=== PATIENT | male | born 1970 | race African-American/Black ===

== ENCOUNTER 2018-11-05 18:23 | Inpatient (IN) | payer OTHER ==
[~2018-11-05] VITALS: Ht 165.1 cm; Wt 85.3 kg
[2018-11-05 18:25] VITALS: BP 174/130
[2018-11-05 19:47] LABS: EOSINOPHILS 2.8 % (0.0-3.0); HEMATOCRIT 48.1 % (42.0-52.0); HEMOGLOBIN 16.5 gm/dL (14.0-18.0); LYMPHOCYTES 26.5 % (24.0-44.0); MCH 30.4 pg (26.0-34.0); MCHC 34.4 g/dL (28.0-37.0); MCV 88.4 fL (80.0-100.0); MONOCYTES 5.2 % (1.0-8.0); PLATELET COUNT 237 thou/uL (150-400); POLYS 64.5 % (36.0-66.0); RBC 5.44 mil/uL (4.50-6.00); RDW 13.4 % (10.5-14.5); WBC 9.3 thou/uL (4.0-11.0)
[2018-11-05 19:55] LABS: ANION GAP 8 mmol/L (7-16); BUN 12 mg/dL (7-18); CALCIUM 9.2 mg/dL (8.5-10.1); CHLORIDE 105 mmol/L (98-107); CO2 30 mmol/L (21-32); CREATININE 1.1 mg/dL (0.7-1.3); GLUCOSE 114 mg/dL (74-106); POTASSIUM 3.9 mmol/L (3.5-5.1); SODIUM 143 mmol/L (136-145)
[2018-11-05 20:03] LABS: ALBUMIN 3.7 g/dL (3.4-5.0); LIPASE 84 U/L (73-393); SGOT 25 U/L (15-37); SGPT 43 U/L (30-65); TOTAL BILIRUBIN 0.6 mg/dL (<0.1-1.0); TOTAL PROTEIN 7.5 g/dL (6.4-8.2); TROPONIN-I <0.06 ng/mL (<0.06)
[2018-11-05 21:04] VITALS: BP 155/106
[2018-11-05 21:57] LABS: CHOLESTEROL 260 mg/dL (<200); HDL CHOLESTEROL 32 mg/dL (>40); LDL CHOLESTEROL 182 mg/dL (<100); TC:HDL 8.1 Ratio (Not establshd); TRIGLYCERIDE 230 mg/dL (<150); VLDL 46 mg/dL (<40)
--- NOTE | 2018-11-05 22:34 | NUR ---
ADMISSION NOTE: STATED THAT HE HAS BEEN HAVING MIGRAINE HEADACHES AND ABDOMINAL PAIN FOR WEEKS. THE ABDOMINAL PAIN IS ONLY SORE AT THIS TIME IT IS LOCATED MIDLINE EPIGASTRIC. 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 ASSESSMENT REVEALS AN AREA ON HIS LEFT MID BACK THAT IS DEFINATELY FIRM AND RAISED AND IS MILDLY TENDER. HE IS COOPERATIVE AND FRIENDLY. INSTRUCTED TO CALL OUT WHEN HE HAS FILLED THE URINAL.
[2018-11-05 22:39] LABS: SERUM ASSESSMENT Moderate Lipemia
[2018-11-05 22:55] VITALS: BP 156/103
--- NOTE | 2018-11-05 23:10 | NUR ---
ALL ASSESSMENT FINDINGS THAT WERE NOT NOTED IN REPORT FROM ED OR IN THE ADMISSION HISTORY AND PHYSICAL HAVE BEEN REPORTED TO THE ASSISTANT PROFESSOR OF ENGLISH ORGAN BUILDER TONIGHT.
[2018-11-06 00:26] VITALS: BP 129/84
[2018-11-06 05:06] VITALS: BP 129/86
[2018-11-06 05:36] LABS: AMP/METHAMP Negative (Negative); BARBITURATES Negative (Negative); BENZODIAZEPINES Negative (Negative); COCAINE Negative (Negative); METHADONE Negative (Negative); OPIATES Negative (Negative); PCP Negative (Negative)
[2018-11-06 07:27] VITALS: BP 121/86
[2018-11-06 09:50] VITALS: BP 121/86
--- NOTE | 2018-11-06 11:21 | NUR ---
PATIENT WILL BE DISCHARGED AT THIS TIME HOME. HE DENIES ANY CHEST PAIN AT THIS TIME. RESPIRATIONS ARE NON LABORED. HAD BREATHING TX HE HAS A HX OF ASTHMA. HE DOES NOT SEEM TO HAVE ANY RESPIRATORY DISTRESS AT THIS TIME. AT BEDSIDE. WILL BE ACCOMPANIED TO FRONT DOOR.
--- NOTE | 2018-11-06 13:42 | EKG ---
[place] [address] [email or web address] [email or web address] [address] ELECTROCARDIOGRAM REPORT Name: DANYXOCHITL Room #: 363-P [facility] IN M.R.#: [id number] ������������������ Admission: 11/05/18 ������������������ Attend Phys: Kendall Bolaños MD Discharge: 11/06/18 ������������������ Date of : 72 Report #: [id number] ����������������������������������������������������������������� [id number] THIS REPORT FOR: //name// [facility] ED Test Date: 2018-11-05 Test Time: 18:29:56 Pat Name: XOCHITL SAENZ Department: Room: [facility] Gender: M Avionics Electronics Technician: TESFAYE : 1970 Requested By: Lin Chicas Order Number: [id number] MD: Jeff Tapia Measurements Intervals [place] Rate: 88 P: 42 MT: 155 QRS: 54 QRSD: 85 T: 26 QT: 342 QTc: 414 Interpretive Statements Sinus rhythm Abnormal R-wave progression, late transition No previous ECG available for comparison Electronically Signed On 11-06-2018 13:41:47 CDT by Jeff Tapia [email or web address] ��������������������������������������������� <ELECTRONICALLY SIGNED> ���������������������������������������� By: Jeff Tapia MD, [facility] ��������������������������������������������� 11/06/18 1341 28 28 Jeff Tapia MD, [facility] /EPI
== END 2018-11-06 12:06 | disposition home or self-care (01) | DRG 305 ==
LOC: ER 18:23 → EROBS 20:35 → 3W 21:06
PROVIDERS: Nurse Practitioner Acute Care; Nurse Practitioner Family; ADMIT Internal Medicine
DX: I16.0 Hypertensive urgency (principal); I10 Essential (primary) hypertension; F41.9 Anxiety disorder, unspecified; E78.5 Hyperlipidemia, unspecified; J45.909 Unspecified asthma, uncomplicated; Z87.891 Personal history of nicotine dependence
CPT/HCPCS: 10879